=== PATIENT | male | born 1985 | race Two or more races ===

== ENCOUNTER 2019-01-03 22:34 | Emergency (ER) | payer MEDICAID ==
[~2019-01-03] VITALS: Ht 188 cm; Wt 79.8 kg
--- NOTE | 2019-01-03 23:00 | NUR ---
PATIENT CAME FOR C/O SWOLLEN RHAND DIGIT III. PATIENT HAS FULL ROM IN DIGITS, C/O MINIMAL PAIN.
[2019-01-03] MEDS ORDERED: LIDOCAINE HCL 1% 20 ML VIAL IJ ONE (23:30)
[2019-01-03] MEDS ORDERED: HYDROCODONE/APAP 10-325 MG TABLET PO ONE (23:45)
[2019-01-03] MEDS ORDERED: CEphaleXIN 500 MG CAPSULE PO ONE (23:45)
--- NOTE | 2019-01-03 23:49 | NUR ---
Patient discharged to home in stable conditon. Written and verbal after care instructions given. Patient verbalizes understanding of instructions. Patient ambulated with stable gait.
[2019-01-03 23:50] VITALS: BP 112/63
== END 2019-01-03 23:51 | disposition home or self-care (01) ==
LOC: ER 22:34
DX: L03.011 Cellulitis of right finger (principal); F17.200 Nicotine dependence, unspecified, uncomplicated
CPT/HCPCS: 99283; J3490; A4663